=== PATIENT | female | born 1985 ===

== ENCOUNTER 2020-07-12 13:15 | Outpatient (CLI) | payer OTHER, SELFPAY ==
--- NOTE | 2020-07-12 13:59 | PM.OBTRLD ---
Visit Information Visit Information Date of evaluation: 07/12/20 Primary OB Provider: Nery Sanchez On-call OB Provider: Mariel Cardenas Reason for Evaluation: Yes rule out labor Comments/Additional reasons for admission: 34yo at 29w2d here with concerns for contractions. Pt reports having frequent [place] contractions starting around 8am this morning. She has been out running errands with her for most of the day. She came to L&D due to them occurring nearly every 10 minutes, and being concerned about the frequency. No LOF or vaginal bleeding. She is feeling the baby move regularly. FORMERLY [facility] Medical History ADD (attention deficit disorder) Anxiety Breast lump Depression Fracture of middle phalanx of finger of right hand GDM (gestational diabetes mellitus) (~2015) H/O mammogram (~10/17/18) HSV (herpes simplex virus) infection Hypertension affecting IBS (irritable bowel syndrome) Migraine Obesity PCOS (polycystic ovarian syndrome) Pneumonia Sleep apnea (~2019) (spontaneous vaginal delivery) (~09/05/09) (spontaneous vaginal delivery) (~02/29/12) (spontaneous vaginal delivery) (~10/27/15) Threatened miscarriage in early (~2014) Surgical History No history of previous surgery Family History Mother Cancer Myocardial infarction Asthma Father Cardiac disease Diabetes mellitus Myocardial infarction Hyperlipidemia Hypertension Kidney failure Melanoma Grandmother Alzheimer disease Grandfather Myocardial infarction Heavy smoker Heavy alcohol use Grandmother Cancer Lung cancer Grandfather Hepatic sclerosis Heavy alcohol use Heavy smoker Brother Deaf Family/Other Leukemia Family/Other Heavy alcohol use Heavy smoker Brain aneurysm Anorexic Social History marital status: number of children: 3 household members: spouse and children lives independently: Yes pets and animals: Yes (X 3 cats indoor and outdoor : aware; X 2 dogs; X 1 bearded dragon ) 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 Smoking Status: Never smoker second hand exposure: No alcohol intake: former (pre- : rare use) substance use type: does not use Type(s) of exercise: walking Evaluation Evaluation Baseline heart rate: 140 Variability: Moderate (11-25) monitor accelerations: Present monitor decelerations: Absent Category of Tracing: Reactive Diagnosis, Plan/Disposition Final Diagnosis (1) 29 to 30 weeks gestation of : Status: Acute (2) [place]' contraction: Status: Acute Plan/Disposition Plan: 34yo at 29w2d here with concerns for contractions. Only 2 contractions seen on prolonged monitoring, pt denied them being painful. U/A negative. Pt able to tolerate fluids here. Safe for d/c home. OB Disposition: home
[2020-07-12 14:37] LABS: Appearance Urine UA CLEAR; Bilirubin Urine UA NEGATIVE (NEGATIVE); Color Urine UA YELLOW; Glucose Urine UA NEGATIVE (Negative); Ketones Urine UA NEGATIVE (NEGATIVE); Leukocyte Esterase Urine UA NEGATIVE (NEGATIVE); Nitrite Urine UA NEGATIVE (Negative); Occult Blood Urine UA NEGATIVE (Negative); Protein Urine UA NEGATIVE (Negative); Urobilinogen Urine UA 0.2 E.U./dL (0.2)
== END 2020-07-12 15:06 | disposition home or self-care (01) ==
LOC: LABOR 14:21 → OB 07-13 07:56
PROVIDERS: Family Medicine; PCP Family Medicine; Referring Provider Family Medicine; Visit Provider Family Medicine
DX: O47.03 False labor before 37 completed weeks of gestation, third trimester (principal); O26.23 Pregnancy care for patient with recurrent pregnancy loss, third trimester; O46.93 Antepartum hemorrhage, unspecified, third trimester; O10.913 Unspecified pre-existing hypertension complicating pregnancy, third trimester; O99.283 Endocrine, nutritional and metabolic diseases complicating pregnancy, third trimester; E28.2 Polycystic ovarian syndrome; Z3A.29 29 weeks gestation of pregnancy
CPT/HCPCS: 59025; 59050; 81003; G0378; G0379

== ENCOUNTER → 2020-07-13 10:56 | Outpatient (CLI) | payer OTHER, SELFPAY ==
[2020-07-13 11:42] LABS: Add Manual Diff / Slide Review NO; Basophils Absolute Auto 0 /uL (0-100); Basophils Percent Auto 0.2 % (0-2); Eosinophils Absolute Auto 200 /uL (0-450); Eosinophils Percent Auto 1.7 % (2-4); Hematocrit 31.2 % (36-46); Hemoglobin 10.6 g/dL (12.0-16.0); Lymphocytes Absolute Auto 1600 /uL (1100-4500); Lymphocytes Percent Auto 16.8 % (25-40); Mean Corpuscular HGB Conc 34.1 % (30-36); Mean Corpuscular Hemoglobin 30.2 PG (26-34); Mean Corpuscular Volume 88.6 fL (80-100); Monocytes Absolute Auto 700 /uL (0-900); Neutrophils Absolute Auto 7000 /uL (1500-7000); Neutrophils Percent Auto 74.3 % (50-75); Platelet Count 218 X10^3/uL (150-400); Red Blood Cell Count 3.52 X10^6/uL (4.0-5.2); Red Cell Distribution Width 14.9 % (11.6-14.8); White Blood Cell Count 9.5 X10^3/uL (4.5-11.0)
[2020-07-13 12:07] LABS: Alanine Aminotransferase 13 IU/L (<35); Albumin 3.4 g/dL (3.5-5.0); Albumin Globulin Ratio 1.3 (1.0-2.8); Alkaline Phosphatase 78 U/L (38-126); Aspartate Aminotransferase 16 IU/L (14-36); BUN Creatinine Ratio 17.4 (6-22); Bilirubin Total 0.2 mg/dL (0.2-1.3); Blood Urea Nitrogen 8 mg/dL (7-17); Calcium 9.1 mg/dL (8.4-10.2); Carbon Dioxide 21 mmol/L (22-32); Chloride 107 mmol/L (98-107); Estimated Glomerular Filt Rate > 60.0 mL/min (>60); Globulin 2.7 g/dL (1.7-4.1); Glucose 84 mg/dL (70-100); HEMOLYSIS < 15 (0-50); Potassium 4.3 mmol/L (3.4-5.1); Sodium 132 mmol/L (137-145); Total Protein 6.1 g/dL (6.3-8.2)
== END ==
PROVIDERS: PCP Nurse Practitioner Family; Referring Provider Family Medicine; Visit Provider Family Medicine
DX: Z34.90 Encounter for supervision of normal pregnancy, unspecified, unspecified trimester (principal); Z3A.26 26 weeks gestation of pregnancy
CPT/HCPCS: 36415; 80053; 85025

== ENCOUNTER 2020-08-09 16:38 | Outpatient (CLI) | payer OTHER, SELFPAY ==
--- NOTE | 2020-08-09 17:10 | PM.OBTRLD ---
Visit Information Visit Information Date of evaluation: 08/09/20 Primary OB Provider: Nery Sanchez Reason for Evaluation: Yes non-stress test non-stress test reason: decreased movement Comments/Additional reasons for admission: 34yo at 33 weeks and 2 days with concern for decreased movement the last 2 days. She also has extreme anxiety this that something will go wrong. She is in counseling and taking sertraline. Denies contractions, bleeding or leaking of fluid. Vital Signs Vital Signs: Temperature 36.1? Initial blood pressure 141/66 however repeat 124/77 Heart rate 69 PFSH Medical History ADD (attention deficit disorder) Anxiety Breast lump Chronic hypertension Depression Fracture of middle phalanx of finger of right hand GDM (gestational diabetes mellitus) (~2015) H/O mammogram (~10/17/18) HSV (herpes simplex virus) infection Hypertension affecting IBS (irritable bowel syndrome) Migraine Obesity PCOS (polycystic ovarian syndrome) Pneumonia Sleep apnea (~2019) (spontaneous vaginal delivery) (~09/05/09) (spontaneous vaginal delivery) (~02/29/12) (spontaneous vaginal delivery) (~10/27/15) Threatened miscarriage in early (~2014) Surgical History No history of previous surgery Family History Mother Cancer Myocardial infarction Asthma Father Cardiac disease Diabetes mellitus Myocardial infarction Hyperlipidemia Hypertension Kidney failure Melanoma Grandmother Alzheimer disease Grandfather Myocardial infarction Heavy smoker Heavy alcohol use Grandmother Cancer Lung cancer Grandfather Hepatic sclerosis Heavy alcohol use Heavy smoker Brother Deaf Family/Other Leukemia Family/Other Heavy alcohol use Heavy smoker Brain aneurysm Anorexic Social History marital status: number of children: 3 household members: spouse and children lives independently: Yes pets and animals: Yes (X 3 cats indoor and outdoor : aware; X 2 dogs; X 1 bearded dragon ) 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 Smoking Status: Never smoker second hand exposure: No alcohol intake: former (pre- : rare use) substance use type: does not use Type(s) of exercise: walking Evaluation Evaluation Baseline heart rate: 130 monitor accelerations: Present monitor decelerations: Absent Category of Tracing: Reactive Diagnosis, Plan/Disposition Final Diagnosis (1) 33 weeks gestation of : Status: Acute (2) Chronic hypertension: Status: Acute (3) Decreased movement: Status: Acute Plan/Disposition Plan: 34yo 33 weeks and 2 days gestation chronic hypertension and decreased movement the last 2 days. Fetus was very active on the monitor and NST reactive. Initial blood pressure was mildly elevated however repeat improved. Will plan for weekly NSTs for chronic hypertension. OB Disposition: home
== END 2020-08-09 17:15 | disposition home or self-care (01) ==
LOC: OB 08-10 07:36
PROVIDERS: PCP Nurse Practitioner Family; Referring Provider Family Medicine; Visit Provider Family Medicine
DX: O36.8130 Decreased fetal movements, third trimester, not applicable or unspecified (principal); O10.913 Unspecified pre-existing hypertension complicating pregnancy, third trimester; O26.23 Pregnancy care for patient with recurrent pregnancy loss, third trimester; Z3A.33 33 weeks gestation of pregnancy
CPT/HCPCS: 59025; G0378; G0379

== ENCOUNTER 2020-08-19 13:26 | Outpatient (CLI) | payer OTHER, SELFPAY ==
--- NOTE | 2020-08-19 14:17 | PM.OBTRLD ---
Visit Information Visit Information Date of evaluation: 08/19/20 Primary OB Provider: Nery Sanchez Reason for Evaluation: Yes non-stress test non-stress test reason: hypertension/pre-eclampsia Vital Signs Vital Signs: BP 138/67 P 87 PFSH Medical History ADD (attention deficit disorder) Anxiety Breast lump Chronic hypertension Depression Fracture of middle phalanx of finger of right hand GDM (gestational diabetes mellitus) (~2015) H/O mammogram (~10/17/18) HSV (herpes simplex virus) infection Hypertension affecting IBS (irritable bowel syndrome) Migraine Obesity PCOS (polycystic ovarian syndrome) Pneumonia Sleep apnea (~2019) (spontaneous vaginal delivery) (~09/05/09) (spontaneous vaginal delivery) (~02/29/12) (spontaneous vaginal delivery) (~10/27/15) Threatened miscarriage in early (~2014) Surgical History No history of previous surgery Family History Mother Cancer Myocardial infarction Asthma Father Cardiac disease Diabetes mellitus Myocardial infarction Hyperlipidemia Hypertension Kidney failure Melanoma Grandmother Alzheimer disease Grandfather Myocardial infarction Heavy smoker Heavy alcohol use Grandmother Cancer Lung cancer Grandfather Hepatic sclerosis Heavy alcohol use Heavy smoker Brother Deaf Family/Other Leukemia Family/Other Heavy alcohol use Heavy smoker Brain aneurysm Anorexic Social History marital status: number of children: 3 household members: spouse and children lives independently: Yes pets and animals: Yes (X 3 cats indoor and outdoor : aware; X 2 dogs; X 1 bearded dragon ) 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 Smoking Status: Never smoker second hand exposure: No alcohol intake: former (pre- : rare use) substance use type: does not use Type(s) of exercise: walking Evaluation Evaluation Baseline heart rate: 130 Variability: Moderate (11-25) monitor accelerations: Present monitor decelerations: Absent Category of Tracing: Reactive Diagnosis, Plan/Disposition Final Diagnosis (1) 34 weeks gestation of : Status: Acute (2) Chronic hypertension: Status: Acute Plan/Disposition Plan: 34yo 34 weeks and 5 days gestation chronic hypertension. NST reactive. BP acceptable, continue labetalol. Denies symptoms of pre-eclampsia. Continue weekly NST. Follow up in clinic as scheduled. OB Disposition: home
== END 2020-08-19 14:25 | disposition home or self-care (01) ==
LOC: LABOR 14:50 → OB 08-20 09:24
PROVIDERS: PCP Nurse Practitioner Family; Referring Provider Family Medicine; Visit Provider Family Medicine
DX: O10.013 Pre-existing essential hypertension complicating pregnancy, third trimester (principal); Z3A.34 34 weeks gestation of pregnancy
CPT/HCPCS: 59025; G0378; G0379

== ENCOUNTER 2020-08-26 12:26 | Outpatient (CLI) | payer OTHER, SELFPAY ==
--- NOTE | 2020-08-26 13:01 | PM.OBTRLD ---
Visit Information Visit Information Date of evaluation: 08/26/20 Primary OB Provider: Nery Sanchez Reason for Evaluation: Yes non-stress test non-stress test reason: hypertension/pre-eclampsia (Chronic hypertension) Vital Signs Vital Signs: T 35.9 BP 128/77 P 83 PFSH Medical History ADD (attention deficit disorder) Anxiety Breast lump Chronic hypertension Depression Fracture of middle phalanx of finger of right hand GDM (gestational diabetes mellitus) (~2015) H/O mammogram (~10/17/18) HSV (herpes simplex virus) infection Hypertension affecting IBS (irritable bowel syndrome) Migraine Obesity PCOS (polycystic ovarian syndrome) Pneumonia Sleep apnea (~2019) (spontaneous vaginal delivery) (~09/05/09) (spontaneous vaginal delivery) (~02/29/12) (spontaneous vaginal delivery) (~10/27/15) Threatened miscarriage in early (~2014) Surgical History No history of previous surgery Family History Mother Cancer Myocardial infarction Asthma Father Cardiac disease Diabetes mellitus Myocardial infarction Hyperlipidemia Hypertension Kidney failure Melanoma Grandmother Alzheimer disease Grandfather Myocardial infarction Heavy smoker Heavy alcohol use Grandmother Cancer Lung cancer Grandfather Hepatic sclerosis Heavy alcohol use Heavy smoker Brother Deaf Family/Other Leukemia Family/Other Heavy alcohol use Heavy smoker Brain aneurysm Anorexic Social History marital status: number of children: 3 household members: spouse and children lives independently: Yes pets and animals: Yes (X 3 cats indoor and outdoor : aware; X 2 dogs; X 1 bearded dragon ) 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 Smoking Status: Never smoker second hand exposure: No alcohol intake: former (pre- : rare use) substance use type: does not use Type(s) of exercise: walking Evaluation Evaluation Baseline heart rate: 120 Variability: Moderate (11-25) monitor accelerations: Present monitor decelerations: Absent Category of Tracing: Reactive Diagnosis, Plan/Disposition Final Diagnosis (1) Chronic hypertension: Status: Acute (2) 36 weeks gestation of : Status: Acute Plan/Disposition Plan: Reactive NST for chronic HTN. BP normal. Follow up in clinic today. Continue weekly NST. OB Disposition: home
== END 2020-08-26 13:06 | disposition home or self-care (01) ==
LOC: LABOR 12:43 → OB 08-27 06:46
PROVIDERS: PCP Nurse Practitioner Family; Referring Provider Family Medicine; Visit Provider Family Medicine
DX: O10.913 Unspecified pre-existing hypertension complicating pregnancy, third trimester (principal); O09.523 Supervision of elderly multigravida, third trimester; O26.23 Pregnancy care for patient with recurrent pregnancy loss, third trimester; O47.03 False labor before 37 completed weeks of gestation, third trimester; Z3A.35 35 weeks gestation of pregnancy
CPT/HCPCS: 59025; 87653; G0378; G0379

== ENCOUNTER → 2020-08-26 12:52 | Outpatient (CLI) | payer OTHER, SELFPAY ==
[2020-08-27 16:03] LABS: Strep Grp B PCR NEG for Grp B Strep
== END ==
PROVIDERS: PCP Nurse Practitioner Family; Visit Provider Family Medicine
DX: Z34.93 Encounter for supervision of normal pregnancy, unspecified, third trimester (principal); Z3A.36 36 weeks gestation of pregnancy
CPT/HCPCS: 87653

== ENCOUNTER 2020-08-30 13:49 | Outpatient (CLI) | payer OTHER, SELFPAY ==
[2020-08-30 14:44] LABS: Add Manual Diff / Slide Review NO; Basophils Absolute Auto 0 /uL (0-100); Basophils Percent Auto 0.3 % (0-2); Eosinophils Absolute Auto 100 /uL (0-450); Eosinophils Percent Auto 1.3 % (2-4); Hematocrit 32.4 % (36-46); Hemoglobin 10.8 g/dL (12.0-16.0); Lymphocytes Absolute Auto 1700 /uL (1100-4500); Lymphocytes Percent Auto 18.1 % (25-40); Mean Corpuscular HGB Conc 33.5 % (30-36); Mean Corpuscular Hemoglobin 30.1 PG (26-34); Monocytes Absolute Auto 700 /uL (0-900); Monocytes Percent Auto 7.4 % (3-14); Neutrophils Absolute Auto 6800 /uL (1500-7000); Neutrophils Percent Auto 72.9 % (50-75); Platelet Count 175 X10^3/uL (150-400); Red Cell Distribution Width 15.3 % (11.6-14.8); White Blood Cell Count 9.4 X10^3/uL (4.5-11.0)
[2020-08-30 15:14] LABS: Aspartate Aminotransferase 19 IU/L (14-36); BUN Creatinine Ratio 19.6 (6-22); Blood Urea Nitrogen 9 mg/dL (7-17); Estimated Glomerular Filt Rate > 60.0 mL/min (>60); Uric Acid 4.1 mg/dL (2.5-6.2)
--- NOTE | 2020-08-30 15:27 | PM.OBTRLD ---
Visit Information Visit Information Date of evaluation: 08/30/20 Primary OB Provider: Nery Sanchez Reason for Evaluation: Yes non-stress test non-stress test reason: hypertension/pre-eclampsia Comments/Additional reasons for admission: 35 year old at 36 weeks gestation with chronic HTN on labetalol with mild headache, nausea, edema and elevated blood pressures today. Denies vision changes or RUQ pain. Headache is mild and she has not taken anything for it. Feeling very stressed and anxious after elevated BP readings at home. Reports good FM and denies contractions, leaking or bleeding. Vital Signs Vital Signs: BP 130/66 All blood pressures in the center were 130s/60-70s with pulse in the 80s. FOR[facility]LY [facility], [facility] Medical History (Updated 08/30/20 @ 21:01 by Nery Sanchez DO) ADD (attention deficit disorder) Anxiety Breast lump Chronic hypertension Depression Fracture of middle phalanx of finger of right hand GDM (gestational diabetes mellitus) (~2015) H/O mammogram (~10/17/18) HSV (herpes simplex virus) infection Hypertension affecting IBS (irritable bowel syndrome) Migraine Obesity PCOS (polycystic ovarian syndrome) Pneumonia Sleep apnea (~2019) (spontaneous vaginal delivery) (~09/05/09) (spontaneous vaginal delivery) (~02/29/12) (spontaneous vaginal delivery) (~10/27/15) Threatened miscarriage in early (~2014) Surgical History No history of previous surgery Family History Mother Cancer Myocardial infarction Asthma Father Cardiac disease Diabetes mellitus Myocardial infarction Hyperlipidemia Hypertension Kidney failure Melanoma Grandmother Alzheimer disease Grandfather Myocardial infarction Heavy smoker Heavy alcohol use Grandmother Cancer Lung cancer Grandfather Hepatic sclerosis Heavy alcohol use Heavy smoker Brother Deaf Family/Other Leukemia Family/Other Heavy alcohol use Heavy smoker Brain aneurysm Anorexic Social History marital status: number of children: 3 household members: spouse and children lives independently: Yes pets and animals: Yes (X 3 cats indoor and outdoor : aware; X 2 dogs; X 1 bearded dragon ) 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 Smoking Status: Never smoker second hand exposure: No alcohol intake: former (pre- : rare use) substance use type: does not use Type(s) of exercise: walking Objective Labs Result Diagrams: 08/30/20 14:33 08/30/20 14:33 Labs: Laboratory Results - last 24 hr 08/30/20 08/30/20 14:33 14:33 WBC 9.4 RBC 3.60 L Hgb 10.8 L Hct 32.4 L MCV 90.0 MCH 30.1 MCHC 33.5 RDW 15.3 H Plt Count 175 Neut % (Auto) 72.9 Lymph % (Auto) 18.1 L Addison % (Auto) 7.4 Eos % (Auto) 1.3 L Baso % (Auto) 0.3 Neut # (Auto) 6800 Lymph # (Auto) 1700 Addison # (Auto) 700 Eos # (Auto) 100 Baso # (Auto) 0 BUN 9 Creatinine 0.46 L Estimated GFR > 60.0 BUN/Creatinine Ratio 19.6 Uric Acid 4.1 AST 19 Evaluation Evaluation Baseline heart rate: 120 Variability: Moderate (11-25) monitor accelerations: Present monitor decelerations: Absent Category of Tracing: Reactive Laboratory results: Laboratory Tests 08/30/20 08/30/20 14:33 14:33 WBC 9.4 RBC 3.60 L Hgb 10.8 L Hct 32.4 L MCV 90.0 MCH 30.1 MCHC 33.5 RDW 15.3 H Plt Count 175 Neut % (Auto) 72.9 Lymph % (Auto) 18.1 L Addison % (Auto) 7.4 Eos % (Auto) 1.3 L Baso % (Auto) 0.3 Neut # (Auto) 6800 Lymph # (Auto) 1700 Addison # (Auto) 700 Eos # (Auto) 100 Baso # (Auto) 0 BUN 9 Creatinine 0.46 L Estimated GFR > 60.0 BUN/Creatinine Ratio 19.6 Uric Acid 4.1 AST 19 Diagnosis, Plan/Disposition Final Diagnosis (1) Chronic hypertension: Status: Acute (2) 36 weeks gestation of : Status: Acute Plan/Disposition Plan: 35 year old at 36 weeks gestation with chronic HTN with concerns for pre-eclampsia. All blood pressures were normal in the center and pre-eclampsia labs normal as well. Patient was reassured and may take Tylenol for headache. Follow up in clinic as scheduled in three days. Continue home blood pressure monitoring. OB Disposition: home
[2020-08-30 15:58] LABS: Creatinine Urine Random 47.8 mg/dL; Protein (Total) Urine Random 12 mg/dL (0-12); Protein Creatinine Ratio Urine 0.25 GRAM/24H
== END 2020-08-30 15:28 | disposition home or self-care (01) ==
LOC: LABOR 14:33 → OB 08-31 06:48
PROVIDERS: PCP Nurse Practitioner Family; Referring Provider Family Medicine; Visit Provider Family Medicine
DX: O10.913 Unspecified pre-existing hypertension complicating pregnancy, third trimester (principal); O09.523 Supervision of elderly multigravida, third trimester; R51.9 Headache, unspecified; R11.0 Nausea; R60.9 Edema, unspecified; Z3A.36 36 weeks gestation of pregnancy
CPT/HCPCS: 36415; 59025; 82570; 84156; 84450; 84550; 85025; G0378; G0379

== ENCOUNTER 2020-09-02 12:25 | Outpatient (CLI) | payer OTHER, SELFPAY ==
--- NOTE | 2020-09-02 13:22 | PM.OBTRLD ---
Visit Information Visit Information Date of evaluation: 09/02/20 Primary OB Provider: Nery Sanchez On-call OB Provider: Chelsea Hampton Reason for Evaluation: Yes non-stress test non-stress test reason: diabetes and hypertension/pre-eclampsia Vital Signs Vital Signs: 110/64 [facility] Medical History (Updated 08/30/20 @ 21:01 by Nery Sanchez DO) ADD (attention deficit disorder) Anxiety Breast lump Chronic hypertension Depression Fracture of middle phalanx of finger of right hand GDM (gestational diabetes mellitus) (~2015) H/O mammogram (~10/17/18) HSV (herpes simplex virus) infection Hypertension affecting IBS (irritable bowel syndrome) Migraine Obesity PCOS (polycystic ovarian syndrome) Pneumonia Sleep apnea (~2019) (spontaneous vaginal delivery) (~09/05/09) (spontaneous vaginal delivery) (~02/29/12) (spontaneous vaginal delivery) (~10/27/15) Threatened miscarriage in early (~2014) Surgical History No history of previous surgery Family History Mother Cancer Myocardial infarction Asthma Father Cardiac disease Diabetes mellitus Myocardial infarction Hyperlipidemia Hypertension Kidney failure Melanoma Grandmother Alzheimer disease Grandfather Myocardial infarction Heavy smoker Heavy alcohol use Grandmother Cancer Lung cancer Grandfather Hepatic sclerosis Heavy alcohol use Heavy smoker Brother Deaf Family/Other Leukemia Family/Other Heavy alcohol use Heavy smoker Brain aneurysm Anorexic Social History marital status: number of children: 3 household members: spouse and children lives independently: Yes pets and animals: Yes (X 3 cats indoor and outdoor : aware; X 2 dogs; X 1 bearded dragon ) 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 Smoking Status: Never smoker second hand exposure: No alcohol intake: former (pre- : rare use) substance use type: does not use Type(s) of exercise: walking Evaluation Evaluation Baseline heart rate: 125 Variability: Average (6-10) monitor accelerations: Present monitor decelerations: Absent Contraction Frequency (minutes): 0 Category of Tracing: Reactive Status: Category l Diagnosis, Plan/Disposition Final Diagnosis (1) 36 weeks gestation of : Status: Acute (2) Chronic hypertension: Status: Acute Plan/Disposition Plan: Reactive nonstress test. Continue current follow-up with Dr. Sanchez OB Disposition: home
== END 2020-09-02 13:25 | disposition home or self-care (01) ==
LOC: LABOR 13:18 → OB 09-06 09:15
PROVIDERS: PCP Nurse Practitioner Family; Referring Provider Family Medicine; Visit Provider Family Medicine
DX: O24.415 Gestational diabetes mellitus in pregnancy, controlled by oral hypoglycemic drugs (principal); O10.913 Unspecified pre-existing hypertension complicating pregnancy, third trimester; O09.523 Supervision of elderly multigravida, third trimester; O26.23 Pregnancy care for patient with recurrent pregnancy loss, third trimester; Z3A.36 36 weeks gestation of pregnancy
CPT/HCPCS: 59025; G0378; G0379

== ENCOUNTER 2020-09-10 12:09 | Outpatient (CLI) | payer OTHER, SELFPAY ==
--- NOTE | 2020-09-10 13:30 | PM.OBTRLD ---
Visit Information Visit Information Date of evaluation: 09/10/20 Primary OB Provider: Nery Sanchez Reason for Evaluation: Yes non-stress test non-stress test reason: other (chronic hypertension) Vital Signs Vital Signs: T 35.8 BP 133/75 P 78 PFSH Medical History ADD (attention deficit disorder) Anxiety Breast lump Chronic hypertension Depression Fracture of middle phalanx of finger of right hand GDM (gestational diabetes mellitus) (~2015) H/O mammogram (~10/17/18) HSV (herpes simplex virus) infection Hypertension affecting IBS (irritable bowel syndrome) Migraine Obesity PCOS (polycystic ovarian syndrome) Pneumonia Sleep apnea (~2019) (spontaneous vaginal delivery) (~09/05/09) (spontaneous vaginal delivery) (~02/29/12) (spontaneous vaginal delivery) (~10/27/15) Threatened miscarriage in early (~2014) Surgical History No history of previous surgery Family History Mother Cancer Myocardial infarction Asthma Father Cardiac disease Diabetes mellitus Myocardial infarction Hyperlipidemia Hypertension Kidney failure Melanoma Grandmother Alzheimer disease Grandfather Myocardial infarction Heavy smoker Heavy alcohol use Grandmother Cancer Lung cancer Grandfather Hepatic sclerosis Heavy alcohol use Heavy smoker Brother Deaf Family/Other Leukemia Family/Other Heavy alcohol use Heavy smoker Brain aneurysm Anorexic Social History marital status: number of children: 3 household members: spouse and children lives independently: Yes pets and animals: Yes (X 3 cats indoor and outdoor : aware; X 2 dogs; X 1 bearded dragon ) 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 Smoking Status: Never smoker second hand exposure: No alcohol intake: former (pre- : rare use) substance use type: does not use Type(s) of exercise: walking Evaluation Evaluation Baseline heart rate: 120 Variability: Moderate (11-25) monitor accelerations: Present monitor decelerations: Absent Category of Tracing: Reactive Diagnosis, Plan/Disposition Plan/Disposition Plan: 35 year old at 37+6 weeks gestation with chronic HTN on labetalol. Reactive NST. Follow up in clinic today. OB Disposition: home
== END 2020-09-10 13:20 | disposition home or self-care (01) ==
LOC: LABOR 12:11 → OB 09-13 07:32
PROVIDERS: PCP Nurse Practitioner Family; Referring Provider Family Medicine; Visit Provider Family Medicine
DX: O10.913 Unspecified pre-existing hypertension complicating pregnancy, third trimester (principal); O24.419 Gestational diabetes mellitus in pregnancy, unspecified control; Z3A.37 37 weeks gestation of pregnancy
CPT/HCPCS: 59025; G0378; G0379

== ENCOUNTER 2020-09-16 12:15 | Outpatient (CLI) | payer OTHER, SELFPAY ==
--- NOTE | 2020-09-16 12:47 | PM.OBTRLD ---
Visit Information Visit Information Date of evaluation: 09/16/20 Primary OB Provider: Nery Sanchez Reason for Evaluation: Yes non-stress test non-stress test reason: hypertension/pre-eclampsia Vital Signs Vital Signs: Temperature 36.0? blood pressure 132/74 heart rate 89 PFSH Medical History ADD (attention deficit disorder) Anxiety Breast lump Chronic hypertension Depression Fracture of middle phalanx of finger of right hand GDM (gestational diabetes mellitus) (~2015) H/O mammogram (~10/17/18) HSV (herpes simplex virus) infection Hypertension affecting IBS (irritable bowel syndrome) Migraine Obesity PCOS (polycystic ovarian syndrome) Pneumonia Sleep apnea (~2019) (spontaneous vaginal delivery) (~09/05/09) (spontaneous vaginal delivery) (~02/29/12) (spontaneous vaginal delivery) (~10/27/15) Threatened miscarriage in early (~2014) Surgical History No history of previous surgery Family History Mother Cancer Myocardial infarction Asthma Father Cardiac disease Diabetes mellitus Myocardial infarction Hyperlipidemia Hypertension Kidney failure Melanoma Grandmother Alzheimer disease Grandfather Myocardial infarction Heavy smoker Heavy alcohol use Grandmother Cancer Lung cancer Grandfather Hepatic sclerosis Heavy alcohol use Heavy smoker Brother Deaf Family/Other Leukemia Family/Other Heavy alcohol use Heavy smoker Brain aneurysm Anorexic Social History marital status: number of children: 3 household members: spouse and children lives independently: Yes pets and animals: Yes (X 3 cats indoor and outdoor : aware; X 2 dogs; X 1 bearded dragon ) 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 Smoking Status: Never smoker second hand exposure: No alcohol intake: former (pre- : rare use) substance use type: does not use Type(s) of exercise: walking Evaluation Evaluation Baseline heart rate: 120 Variability: Moderate (11-25) monitor accelerations: Present monitor decelerations: Absent Category of Tracing: Reactive Diagnosis, Plan/Disposition Final Diagnosis (1) 38 weeks gestation of : Status: Acute (2) Chronic hypertension: Status: Acute Plan/Disposition Plan: 35 year old at 38+5 weeks gestation with chronic HTN on labetalol. Reactive NST. Follow up in clinic today. OB Disposition: home
== END 2020-09-16 12:51 | disposition home or self-care (01) ==
LOC: LABOR 12:51 → OB 09-20 06:45
PROVIDERS: PCP Nurse Practitioner Family; Referring Provider Family Medicine; Visit Provider Family Medicine
DX: O10.913 Unspecified pre-existing hypertension complicating pregnancy, third trimester (principal); Z3A.38 38 weeks gestation of pregnancy
CPT/HCPCS: 59025; G0378; G0379

== ENCOUNTER 2020-09-19 19:07 | Inpatient (IN) | payer OTHER, SELFPAY ==
[2020-09-19 20:41] LABS: Add Manual Diff / Slide Review NO; Basophils Absolute Auto 0 /uL (0-100); Basophils Percent Auto 0.3 % (0-2); Eosinophils Absolute Auto 100 /uL (0-450); Hematocrit 32.8 % (36-46); Hemoglobin 10.9 g/dL (12.0-16.0); Lymphocytes Absolute Auto 2100 /uL (1100-4500); Lymphocytes Percent Auto 20.2 % (25-40); Mean Corpuscular HGB Conc 33.3 % (30-36); Mean Corpuscular Volume 90.2 fL (80-100); Monocytes Absolute Auto 700 /uL (0-900); Neutrophils Absolute Auto 7300 /uL (1500-7000); Neutrophils Percent Auto 71.5 % (50-75); Platelet Count 180 X10^3/uL (150-400); Red Blood Cell Count 3.64 X10^6/uL (4.0-5.2); Red Cell Distribution Width 14.7 % (11.6-14.8); White Blood Cell Count 10.2 X10^3/uL (4.5-11.0)
[2020-09-19 20:45] VITALS: BP 148/80
[2020-09-19] MEDS: DINOPROSTONE VAG (CERVIDIL) 10 MG VAG (20:54)
[2020-09-19 21:31] LABS: COVID19 - ADMIT (NP swab/PCR) Negative (Negative)
[2020-09-19] MEDS: ZOLPIDEM 5 MG TABLET PO (23:08)
[2020-09-19] MEDS: CALCIUM CARBONATE 500 MG TAB 1000 MG PO (23:08)
--- NOTE | 2020-09-20 07:46 | PM.OBHP.1 ---
OB HPI Date/Time Date of admission: 09/19/20 Date Patient Seen: 09/20/20 Time Patient Seen: 07:35 History of Present Condition Chief complaint: eval of labor : 7 Para: 3 Estimated Date of Delivery: 09/25/20 Estimated Gestational Age (weeks): 39w2d Narrative: Brea Gaitan is a 35 year old at 39+2 weeks. complicated by chronic HTN, PCOS on metformin, anxiety and AMA. Blood pressures well-controlled throughout the with labetalol with normal pre-eclampsia labs at 36 weeks. 1 hr GTT was elevated but 3 hr GTT normal at 20 weeks (done early due to previous GDM). She was unable to repeat a 3 hr GTT at 28 weeks. She monitored blood sugars QID for several weeks and all were normal so no diagnosis of GDM. has also been complicated by severe anxiety which improved with sertraline and regular counseling. H/o genital herpes, last outbreak in 2019. Denies symptoms. Has been taking prophylactic acyclovir. Patient presented last night for cervical ripening. Overnight she slept through contractions. This morning she feels mild contractions which she states are not painful. Indications Indication for induction OB: medical complication (Chronic HTN, AMA) History of Present care: good care, initiated at week # (14), number of visits (14) and pounds weight gain Dating criteria: LMP confirmed by 2nd trimester US Ultrasounds: normal mid trimester US Obstetrical complications: gestational hypertension Medical complications: none Preadmission Labs Blood type: A (+) positive -: Antibody screen: negative, GBS status: negative, HBsAG: negative, HIV: negative and RPR/VDLR: negative -: Chlamydia screen: not detected and Gonorrhea screen: not detected -: Rubella: immune and Varicella: immune HCT: 32.8 HCAB: negative Cell-free DNA: Normal female 1 hr GTT: 165 3 hr GTT: 1 hr (167), 2 hr (167) and 3 hr (118) Fasting blood glucose: 72 Prior (ies) History: 04/22/07 SAB 6-7 wks 09/05/09 Forceps-assisted VD at 39.2 wks, 72 hr labor, epidural, 6 lb 5 oz female, [place], [place], breast fed 18 months 02/29/12 at 39.4 wks, 9 hr labor, epidural, 7 lb 2 oz female, [place], breast fed 12 months 11/18/13 SAB 6-7 wks 10/27/15 at 39.6 wks, 14 hr labor, 8 lb 2 oz male, [place], [place], breast fed 24 months, GDM during 11/30/18 SAB 8+ wks Evaluation Evaluation Baseline heart rate: 130 monitor accelerations: Present monitor decelerations: Absent Contraction Frequency (minutes): 3 Uterine Contraction Intensity: Mild Status: Category l Cervical dilation (cm): 2 Cervical effacement (%): 80 station: -2 Laboratory results: Laboratory Tests 09/19/20 09/19/20 09/19/20 19:50 19:50 19:50 WBC 10.2 RBC 3.64 L Hgb 10.9 L Hct 32.8 L MCV 90.2 MCH 30.0 MCHC 33.3 RDW 14.7 Plt Count 180 Neut % (Auto) 71.5 Lymph % (Auto) 20.2 L [place] % (Auto) 7.0 Eos % (Auto) 1.0 L Baso % (Auto) 0.3 Neut # (Auto) 7300 H Lymph # (Auto) 2100 [place] # (Auto) 700 Eos # (Auto) 100 Baso # (Auto) 0 SARS-CoV-2 (PCR) Negative Blood Type A Positive Antibody Screen Negative [facility] Medical History ADD (attention deficit disorder) Anxiety Breast lump Chronic hypertension Depression Fracture of middle phalanx of finger of right hand GDM (gestational diabetes mellitus) (~2015) H/O mammogram (~10/17/18) HSV (herpes simplex virus) infection Hypertension affecting IBS (irritable bowel syndrome) Migraine Obesity PCOS (polycystic ovarian syndrome) Pneumonia Sleep apnea (~2019) (spontaneous vaginal delivery) (~09/05/09) (spontaneous vaginal delivery) (~02/29/12) (spontaneous vaginal delivery) (~10/27/15) Threatened miscarriage in early (~2014) Surgical History No history of previous surgery Family History Mother Cancer Myocardial infarction Asthma Father Cardiac disease Diabetes mellitus Myocardial infarction Hyperlipidemia Hypertension Kidney failure Melanoma Grandmother Alzheimer disease Grandfather Myocardial infarction Heavy smoker Heavy alcohol use Grandmother Cancer Lung cancer Grandfather Hepatic sclerosis Heavy alcohol use Heavy smoker Brother Deaf Family/Other Leukemia Family/Other Heavy alcohol use Heavy smoker Brain aneurysm Anorexic Social History marital status: number of children: 3 household members: spouse and children lives independently: Yes pets and animals: Yes (X 3 cats indoor and outdoor : aware; X 2 dogs; X 1 bearded dragon ) 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 Smoking Status: Never smoker second hand exposure: No alcohol intake: former (pre- : rare use) substance use type: does not use Type(s) of exercise: walking Meds Home Medications and Allergies Home Medications Medication Instructions Recorded Confirmed Type metformin 500 mg tablet 500 mg PO BID 06/07/20 09/19/20 History prenat.vits,ck,djr-fwfy-ybxxt 1 tab PO DAILY 06/07/20 09/19/20 History acyclovir 400 mg tablet 400 mg PO TID #30 tab 09/16/20 09/19/20 Rx sertraline 100 mg tablet 150 mg PO DAILY #135 tab 09/17/20 09/19/20 Rx labetalol 50 mg PO BID 09/19/20 09/19/20 History Allergies Allergy/AdvReac Type Severity Reaction Status Date / Time HAYFEVER SEASONAL ALLERGIES Allergy Mild Uncoded 09/19/20 20:48 Review of Systems Review of Systems ROS: Yes All systems reviewed with the patient and are negative except as otherwise documented Exam Vital Signs (past 8 hours): T 36.4 BP 148/72 P 94 Const General: healthy appearing and comfortable HENDC Head: normal to inspection Ears: hearing grossly normal bilaterally Nose: external nose normal Face and sinus: normal facial exam Mouth: oral mucosae normal Eyes General: appearance normal, both eyes and all related structures Neck Neck: normal visual inspection Resp Effort & Inspection: normal respiratory effort Auscultation: clear to auscultation bilaterally Cardio Rate: regular rate Rhythm: regular rhythm Heart Sounds: no murmurs GI Other: Gravid External Female Exam: normal external appearance Manual OB Exam: dilated 2, effaced (80) and station -2 Presentation: vertex Estimated Weight (lbs): 8 Back/Spine/Pelvis Back: normal to inspection Skin General: no rashes or lesions noted Extrem General: normal to inspection and no pedal edema Objective Labs Result Diagrams: 09/19/20 19:50 Labs: Laboratory Results - last 24 hr 09/19/20 09/19/20 09/19/20 19:50 19:50 19:50 WBC 10.2 RBC 3.64 L Hgb 10.9 L Hct 32.8 L MCV 90.2 MCH 30.0 MCHC 33.3 RDW 14.7 Plt Count 180 Neut % (Auto) 71.5 Lymph % (Auto) 20.2 L [place] % (Auto) 7.0 Eos % (Auto) 1.0 L Baso % (Auto) 0.3 Neut # (Auto) 7300 H Lymph # (Auto) 2100 [place] # (Auto) 700 Eos # (Auto) 100 Baso # (Auto) 0 SARS-CoV-2 (PCR) Negative Blood Type A Positive Antibody Screen Negative Assessment and Plan Assessment and Plan Assessment and Plan narrative: 35 year old G7P at 39+2 weeks gestation here for induction due to chronic HTN and AMA. She also has a h/o PCOS managed with metformin which she took throughout her . Early 1 hr GTT was elevated however 3 GTT normal at 20 weeks. Patient unable to do repeat 3 hr GTT at 28 weeks so monitored blood sugars at home. All home blood sugars were normal for two months so no diagnosis of GDM made. Lastly she has severe anxiety for which she takes sertraline and participates in counseling. She received Cervidil overnight for cervical ripening. Eaton score of 8 this morning. GBS negative, COVID-19 negative. Blood pressures intermittently mildly elevated overnight. Patient denies ARTIS, vision changes, RUQ pain or edema. Plan Due to elevated blood pressures, will check pre-eclampsia labs. She will also take her usual labetalol this morning. Patient may shower and have a small breakfast prior to starting pitocin Desires natural childbirth Anticipate vaginal delivery
[2020-09-20] MEDS: LACTATED RINGERS 1,000 ML 100 ML IV ×2 (08:46→11:38)
[2020-09-20 09:04] VITALS: BP 149/72; PULSE 90
[2020-09-20] MEDS: METFORMIN HCL 500 MG TABLET PO ×2 (09:04→21:05)
[2020-09-20] MEDS: LABETALOL 100 MG TABLET 50 MG PO ×2 (09:04→21:54)
[2020-09-20] MEDS: ACYCLOVIR 400 MG TABLET PO ×2 (09:04→15:54)
[2020-09-20] MEDS: OXYTOCIN PREMIX 30 UNIT/500 ML PLAST..BAG IV (09:21)
[2020-09-20 09:38] LABS: Alanine Aminotransferase 15 IU/L (<35); Albumin 3.8 g/dL (3.5-5.0); Albumin Globulin Ratio 1.3 (1.0-2.8); Alkaline Phosphatase 126 U/L (38-126); Aspartate Aminotransferase 20 IU/L (14-36); BUN Creatinine Ratio 20.8 (6-22); Bilirubin Total 0.3 mg/dL (0.2-1.3); Blood Urea Nitrogen 11 mg/dL (7-17); Calcium 9.5 mg/dL (8.4-10.2); Carbon Dioxide 20 mmol/L (22-32); Chloride 105 mmol/L (98-107); Estimated Glomerular Filt Rate > 60.0 mL/min (>60); Globulin 2.9 g/dL (1.7-4.1); Glucose 96 mg/dL (70-100); HEMOLYSIS < 15 (0-50); Sodium 134 mmol/L (137-145); Total Protein 6.7 g/dL (6.3-8.2)
[2020-09-20 10:00] LABS: Creatinine Urine Random 185.5 mg/dL
[2020-09-20 10:06] LABS: Microalbumi Creatinin Ratio Ur 10.2 ug/mg CR (<30); Microalbumin Urine Random 1.9 mg/dL (0-1.6)
[2020-09-20] MEDS: FENT 2MCG/ML BUPIV 0.125% EPI 200 MCG/100 ML PLAST..BAG 10 MCG EPIDURAL ×2 (10:40→16:44)
--- NOTE | 2020-09-20 11:13 | PM.OBPNLAB ---
Date/Time Date Patient Seen: 09/20/20 Time Patient Seen: 11:05 Pain Control Pain control: tolerating well and epidural Comments: Patient became very painful shortly after starting pitocin and requested epidural. Comfortable with epidural now and cannot feel contractions. Pelvic Exam Dilation (cm): 3 Effacement (%): 90 station: -2 Amniotic membrane status: Intact Contractions Contraction frequency (min): 3 Contraction intensity: Strong/Firm Status status: Category l Heart Rate Baseline: 130 Monitor Accelerations: Present Monitor Decelerations: Absent Monitor Variability: Moderate Assessment and Plan Assessment: induction ongoing Plan: continuous present management Comments: Pitocin turned off prior to epidural due to difficult monitoring. Patient now comfortable. Will restart pitocin and AROM when able.
--- NOTE | 2020-09-20 15:09 | PM.OBPNLAB ---
Date/Time Date Patient Seen: 09/20/20 Time Patient Seen: 15:00 Pain Control Pain control: epidural Pelvic Exam Dilation (cm): 4 Effacement (%): 90 station: -2 Amniotic membrane status: Ruptured (moderate amount of clear fluid) Contractions Pitocin rate (mU/min): 5 Contraction frequency (min): 3 Contraction intensity: Strong/Firm Status status: Category l Heart Rate Baseline: 120 Monitor Accelerations: Present Monitor Decelerations: Absent Monitor Variability: Moderate Assessment and Plan Assessment: induction ongoing Plan: continuous present management Comments: AROM for clear fluid. Continue pitocin.
--- NOTE | 2020-09-20 16:57 | PM.OBPNLAB ---
Date/Time Date Patient Seen: 09/20/20 Time Patient Seen: 16:57 Pain Control Pain control: tolerating well Comments: Does not feel that epidural is working on her left side. Declines having anesthesia come. Pelvic Exam Dilation (cm): 9 Effacement (%): 100 station: -2 Amniotic membrane status: Ruptured (moderate amount of clear fluid) Contractions Monitor mode: External Pitocin rate (mU/min): 7 Contraction frequency (min): 3 Contraction pattern: Regular Contraction intensity: Strong/Firm Status status: Category ll Heart Rate Baseline: 130 Monitor Accelerations: Present Monitor Decelerations: Variable Monitor Variability: Moderate Assessment and Plan Assessment: induction ongoing Plan: continuous present management
--- NOTE | 2020-09-20 18:00 | PM.OBPRVD ---
Labor & Delivery Delivery date: 09/20/20 Cervical ripening method: per Cervidil protocol Induction method: per pitocin protocol Delivery augmentation: rupture of membranes Delivery monitor: external FHT Route of delivery: L&D Laceration Description: Labial (First-degree right labial) Estimated blood loss (mL): 200 Anesthesia Type: Epidural Narrative: Patient is a 35-year-old at 39 weeks and 2 days gestation who gave on 09/20/20 at 17:42. MARLEN: 09/25/20 Hospital problems: 39 weeks of Epidural analgesia STAGE I: Labor Patient came in the night of 09/19/20 for cervical ripening. She was then started on Pitocin per protocol the morning of 09/20/20. She received an epidural with adequate pain control. Artificial rupture membranes occurred at 3:00 p.m. with clear fluid. She was complete 17:20. heart tones were category 1 throughout stage I. Stage I duration 7 hours and 59 minutes. STAGE II: Delivery Patient was complete and pushed for 22 minutes. heart tones were category 2 due to large variable decelerations to the 70s with pushing but with good recovery between contractions. Patient brought baby down to +2 station and heart tones remained in the 70s. She then pushed without a contraction and went on to deliver at 17:42. Infant was vertex and JOSH. There was a cord over the right shoulder and body. was immediately placed on mother's abdomen. Infant had a weak cry and poor respiratory effort so was taken to the warmer after 2 minutes of life. 1 minute was 7 and 5 minutes was 8. required support with CPAP about 30 seconds of PPV but by 12 minutes of life was transferred back to mother. STAGE III: Placenta/Cord Placenta delivered at 5:46 p.m. after active management and appeared intact with a three-vessel cord. Pitocin bolus given after delivery of placenta. There was a superficial right labial laceration which was not repaired. Fundus was firm 1 cm below umbilicus after delivery. Hemostasis assured. EBL: 200 mL. Needle and sponge counts were correct. The vagina was inspected and no items were left in situ. Patient was doing well with [place], her and at bedside. Baby 1: Infant gender: Female Presentation: vertex Placenta delivery description: Spontaneous Cord Vessel Description: 3 Vessels and Around Body x1 score (1 min): 7 score (5 min): 8
[2020-09-20 21:54] VITALS: BP 122/70; PULSE 97
[2020-09-20] MEDS: SERTRALINE 50 MG TABLET 150 MG PO (21:59)
[2020-09-21] MEDS: LANOLIN OINT 7 GM 1 APPLIC TOP (02:43)
[2020-09-21 02:44] VITALS: TEMP 37.6
[2020-09-21] MEDS: ACETAMINOPHEN 325 MG TABLET 650 MG PO (02:44)
[2020-09-21] MEDS: IBUPROFEN 600 MG TABLET PO ×3 (02:45→15:36)
[2020-09-21 09:05] VITALS: TEMP 36.7
[2020-09-21] MEDS: DOCUSATE 100 MG CAPSULE PO (09:06)
[2020-09-21] MEDS: PRENATAL VIT,CALC/IRON/FOLIC 1 TABLET 1 TAB PO (09:06)
[2020-09-21] MEDS: METFORMIN HCL 500 MG TABLET PO (09:07)
[2020-09-21 09:08] VITALS: BP 134/71; PULSE 76
[2020-09-21] MEDS: LABETALOL 100 MG TABLET 50 MG PO (09:08)
--- NOTE | 2020-09-21 10:22 | PM.OBDS.1 ---
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 She was induced for chronic hypertension. was also complicated by severe anxiety and PCOS on metformin but not gestational diabetes. On admission blood pressures were quite elevated so preeclampsia labs done and normal. Blood pressures improved though were still intermittently mildly elevated throughout her hospitalization. She was continued on her usual labetalol. Denied symptoms of preeclampsia. She received Cervidil for cervical ripening followed by Pitocin and went on to deliver a healthy female . Infant required a brief period of resuscitation at the warmer after delivery but quickly transferred back to mother at approximately 12 minutes of life. course was uncomplicated. Patient was ambulating, voiding and passing flatus. Vaginal bleeding moderate to light. Pain controlled with ibuprofen only. Breast-feeding going well. Advised patient to call for fevers, severe pain or bleeding through more than a pad an hour. Peripartum Data Delivery Method: Natural Vaginal Laceration Description: Labial complications: none 1: Gender: Female Disposition of : home Discharge Diagnosis (1) Spontaneous vaginal delivery: Status: Acute (2) Chronic hypertension: Status: Acute (3) Anxiety: Status: Acute (4) PCOS (polycystic ovarian syndrome): Status: Acute Problem Details: As a sophomore in Status at Discharge Cognitive/behavioral status at discharge: at baseline, oriented Functional status at discharge: independent ambulation Overall status at discharge: patient is progressing back to baseline Time Spent with Patient Time attestation: Total time spent providing and/or coordinating discharge services: Time spent: Less than 30 minutes Objective Labs Result Diagrams: 09/19/20 19:50 09/20/20 09:21 Exam Vital Signs (past 8 hours): - 09/21/20 02:44 09/21/20 09:05 09/21/20 09:08 Temperature 99.6 F 98.1 F Pulse Rate 76 Blood Pressure 134/71 Narrative Exam Narrative: General: Awake and alert, no acute distress. HEENT: NCAT, EOMI, moist oral mucosa CV: Regular rate and rhythm, no murmurs, rubs or gallops Lungs: CTAB, no wheezes, rales, or rhonchi Abdomen: Soft, nontender; bowel tones active; uterus firm 1 cm below umbilicus Extremities: Warm, no edema, 2+ pedal pulses bilaterally Discharge Plan Discharge Plan Patient Disposition: Home Discharge orders & Medications Prescriptions: New docusate sodium [DOK] 100 mg Capsule 100 mg PO DAILY Qty: 30 RF: 0 ibuprofen 600 mg Tablet 600 mg PO Q6HR PRN (Reason: Pain, Mild (1-3)) Qty: 30 RF: 0 labetalol 100 mg Tablet 50 mg PO BID Qty: 30 RF: 0 Continued prenat.vits,ck,vnu-kfii-gamih Tablet 1 tab PO DAILY RF: 0 sertraline 100 mg tablet 150 mg PO DAILY Qty: 135 RF: 3 metformin 500 mg tablet 500 mg PO BID RF: 0 Discontinued acyclovir 400 mg tablet 400 mg PO TID Qty: 30 RF: 0 labetalol 100 mg tablet 50 mg PO BID RF: 0 Follow up/Referrals: Dianne Quinn ARNP [Primary Care Provider] - Nery Sanchez DO [Physician] - 11/04/20 2:30 pm (Please follow up with Dr. Sanchez on November 04 at 2:30pm with a 2:15pm check in time. If you have any questions/concerns or need to reschedule please call .) Visit Report/Discharge Packet Instructions: DI for Labor and Delivery, Vaginal Stand Alone Forms: Discharge: Care Visit Report Forms: Patient Portal/API, Stroke Signs & Symptoms Discharge Data Primary Care Provider: Dianne Quinn
[2020-09-21 15:36] VITALS: TEMP 36.9
[2020-09-21 16:07] VITALS: BP 134/71; PULSE 76; RESP 20; TEMP 36.9
== END 2020-09-21 18:00 | disposition home or self-care (01) | DRG 806 ==
PROVIDERS: Admitting Provider Family Medicine; PCP Nurse Practitioner Family; Referring Provider Family Medicine; Visit Provider Family Medicine
DX: O10.92 Unspecified pre-existing hypertension complicating childbirth (principal); O98.32 Other infections with a predominantly sexual mode of transmission complicating childbirth; Z37.0 Single live birth; B00.9 Herpesviral infection, unspecified; Z3A.39 39 weeks gestation of pregnancy; O99.284 Endocrine, nutritional and metabolic diseases complicating childbirth; E28.2 Polycystic ovarian syndrome; O99.344 Other mental disorders complicating childbirth; F41.9 Anxiety disorder, unspecified; O76 Abnormality in fetal heart rate and rhythm complicating labor and delivery; Z20.822 Contact with and (suspected) exposure to COVID-19
CPT/HCPCS: 01967; 36415; 59050; 59200; 59410; 80053; 82043; 82570; 85025; 86850; 86900; 86901; 87635; G0379; J2590

== ENCOUNTER → 2021-08-17 10:03 | Outpatient (CLI) | payer OTHER, SELFPAY ==
[2021-08-17 14:43] LABS: COVID19 -Nasal RAPID Negative (Negative)
== END ==
PROVIDERS: PCP Nurse Practitioner Family; Visit Provider Family Medicine Sleep Medicine
DX: Z20.822 Contact with and (suspected) exposure to COVID-19 (principal)
CPT/HCPCS: 87635; C9803

== ENCOUNTER 2021-08-18 11:29 | Day surgery (SDC) | payer OTHER, SELFPAY ==
[2021-08-17 09:14] VITALS: BMI 34.2
[2021-08-18] VITALS (8 sets, daily range): BP systolic 117–156; BP diastolic 74–89; PULSE 68–111; RESP 12–16; TEMP 36.4–36.7; O2SAT 94–98; BMI 34.2
[2021-08-18] MEDS: LACTATED RINGERS 1,000 ML 84 ML IV ×2 (12:06→14:18)
[2021-08-18] MEDS: OXYMETAZOLINE NASAL SPRAY 15 ML 2 SPRAYS NASAL ×2 (12:24→13:48)
--- NOTE | 2021-08-18 13:02 | PM.PREOP ---
Pre-operative Note Interval Note History & Physical reviewed/Exam performed by Physician: Yes Changes to H&P: No
--- NOTE | 2021-08-18 13:02 | PM.HP.1 ---
History of Present Illness History of Present Illness Date Patient Seen: 08/18/21 Time Patient Seen: 13:02 Chief complaint: Nasal obstruction, septal deviation Narrative: 35-year-old female with chronic nasal obstruction and known septal deviation presents for surgical intervention. She was last seen in clinic 04/20/2021, admittedly not using her full face CPAP for what she describes as mild RUSLAN, as she sleeps with her infant. No interval cough, cold, or fever. Patient History Medical History ADD (attention deficit disorder) Allergic rhinitis Anxiety Breast lump Chronic hypertension Depression Deviated septum Diabetes mellitus Enlarged tonsils Fracture of middle phalanx of finger of right hand GDM (gestational diabetes mellitus) (~2015) H/O mammogram (~10/17/18) Hearing loss HSV (herpes simplex virus) infection Hypertension Hypertension affecting IBS (irritable bowel syndrome) Maxillary sinusitis, chronic Migraine Nasal congestion Nasal obstruction Nasal turbinate hypertrophy Obesity RUSLAN (obstructive sleep apnea) PCOS (polycystic ovarian syndrome) Pneumonia Sleep apnea (~2019) (spontaneous vaginal delivery) (~09/05/09) (spontaneous vaginal delivery) (~02/29/12) (spontaneous vaginal delivery) (~10/27/15) Threatened miscarriage in early (~2014) Surgical History No history of previous surgery Family & Social History Family History Mother Cancer Myocardial infarction Asthma Father Cardiac disease Diabetes mellitus Myocardial infarction Hyperlipidemia Hypertension Kidney failure Melanoma Grandmother Alzheimer disease Grandfather Myocardial infarction Heavy smoker Heavy alcohol use Grandmother Cancer Lung cancer Grandfather Hepatic sclerosis Heavy alcohol use Heavy smoker Brother Deaf Family/Other Leukemia Family/Other Heavy alcohol use Heavy smoker Brain aneurysm Anorexic Social History: household members spouse,children lives independently Yes other NOTE : be aware that if it comes to chosing life of mom or baby chose baby! Tobacco & Substance use: Smoking Status Never smoker alcohol intake current alcohol intake frequency holiday/special occasion Substance Use Type does not use Meds Home Medications and Allergies Home Medications Medication Instructions Recorded Confirmed Type metformin 500 mg tablet 500 mg PO BID 06/07/20 08/18/21 History prenat.vits,ck,nyp-wpri-yamsa 1 tab PO DAILY 06/07/20 08/18/21 History sertraline 100 mg tablet 150 mg PO DAILY #135 tab 09/17/20 08/18/21 Rx docusate sodium 100 mg capsule 100 mg PO DAILY #30 cap 09/21/20 08/18/21 Rx (DOK) ibuprofen 600 mg tablet 600 mg PO Q6HR PRN #30 tab 09/21/20 08/18/21 Rx clobetasol 0.05 % scalp solution TOPICAL 08/17/21 History hydrochlorothiazide 12.5 mg tablet 12.5 mg PO DAILY 08/17/21 08/18/21 History ketoconazole 2 % shampoo TOPICAL 08/17/21 History lisinopril 20 mg tablet 20 mg DAILY 08/17/21 08/18/21 History methylphenidate HCl 36 mg 36 mg PO DAILY 08/17/21 08/18/21 History tablet,extended release 24 hr Allergies Allergy/AdvReac Type Severity Reaction Status Date / Time HAYFEVER SEASONAL ALLERGIES Allergy Mild Uncoded 08/18/21 11:36 Review of Systems Review of Systems Narrative: Negative except as noted in the HPI Exam Vital Signs (past 8 hours): - 08/18/21 11:47 Temperature 98.1 F Pulse Rate 68 Respiratory Rate 16 Blood Pressure 117/74 Pulse Oximetry 98 Oxygen Delivery Method Room Air Narrative Exam Narrative: Well-developed overweight female in no acute distress, 3 to 4+ left septal deviation, right inferior turbinate hypertrophy, heart regular rate and rhythm without murmur, lungs clear to auscultation bilaterally Assessment & Plan Assessment & Plan narrative: Assessment: Nasal airway obstruction, septal deviation, inferior turbinate hypertrophy, RUSLAN Plan: Following discussion of the material risks benefits complications and alternatives, she elected to proceed with septoplasty and inferior turbinate reduction. Time Spent With Patient Critical Care time: I spent a total of [] minutes of critical care time on this patient's care today; this time is exclusive of procedural time.
--- NOTE | 2021-08-18 13:05 | PM.OP.1 ---
Operative Date/Time/Diagnoses Date of procedure: 08/18/21 Time of procedure: 14:23 Pre-op diagnosis: Nasal airway obstruction, septal deviation, inferior turbinate hypertrophy, RUSLAN Post-op diagnosis: same Procedure & Clinicians Procedure: 1. Septoplasty 2. Inferior turbinate reduction via intramural cautery Same procedure as scheduled: Yes Indications: 35-year-old female with the above diagnoses incompletely managed with medical therapy presents for the above procedures. Following discussion of the material risks benefits complications and alternatives, she elected to proceed. Surgeon: Brendan Montes De Oca Click Yes if Unassisted: Yes Anesthesia Type: General and Local Operative Notes Findings: 3 to 4+ left septal deviation, right greater than left inferior turbinate hypertrophy Closure Type: primary Estimated Blood Loss (mL): 20 Procedure in detail: Following identification and confirmation of consent as well as preoperative Afrin nasal spray, the patient was brought to the operating room suite and placed in the supine position. General endotracheal anesthesia was administered. I infiltrated the septum widely bilaterally with 1% lidocaine 1 100,000 epinephrine followed by temporary packing with cotton with Afrin and 4% lidocaine. Following sterile prep and drape, the packing was removed and I performed a right yolette-transfixion incision, elevated the right mucoperichondrial and mucoperiosteal flap. I disarticulated near the bony/cartilaginous junction and elevated the left mucoperiosteal flap. Deviated portions of the perpendicular plate of the ethmoid and vomer were resected. The residual quadrilateral cartilage was further straightened by trimming it inferiorly as well as reducing the maxillary crest. A 2 mm strip of cartilage paralleling the residual 1 cm dorsal and caudal strut was resected to further straighten the quadrilateral cartilage. The hemitransfixion incision was closed with interrupted 5 0 chromic followed by a running 4 0 plain gut mattress suture to reapproximate the septal flaps. At case completion, 20/1000th of an inch silastic splints were placed bilaterally, sutured anteriorly with a single 4 0 nylon. The head of each inferior turbinate had been previously infiltrated with additional local anesthetic and a 25 gauge spinal needle was used to impale the length of the turbinate, with cautery on a setting of 15 activated on slow withdrawal over 2 passes. The turbinates were then outfractured. The procedure completed, sponge and needle counts were correct and the patient was extubated in the operating room and taken to recovery room in stable condition without known complication. Postoperative care: Nasal saline every hour while awake, Vaseline or Polysporin to the nostrils at all times, begin irrigations t.i.d. beginning pod 1. Humidifier at the bedside blowing on the face. Tylenol alternating with Advil for pain control, oxycodone if necessary for breakthrough pain. Complications: none Post-operative Condition: stable Disposition: same day surgery Plan for aftercare: Nasal saline every hour while awake, begin irrigations t.i.d. tomorrow if desired. Polysporin to the nostrils at all times, Tylenol alternating with Advil for pain control, oxycodone for breakthrough pain. Elevate head of bed, no nose blowing, no straining for 2 weeks. Follow-up in 1 week for nasal splint removal. Use CPAP if at all possible, at least elevate HOB.
--- NOTE | 2021-08-18 13:42 | SUR.OPER ---
Supine on padded OR bed, head gel doughnut, arms padded and tucked at sides, legs uncrossed, safety belt at thigh, tape over blanket over lower legs .
[2021-08-18] MEDS: BACITRACIN OINT 0.9 GM PCKT 1 APPLIC TOP (13:50)
[2021-08-18] MEDS: LIDOCAINE 2% W/EPI INJ 20 ML INJ (13:50)
[2021-08-18] MEDS: OXYCODONE/ACETAMINOPHEN 5/325 TABLET 1 TAB PO ×2 (14:35→15:05)
--- NOTE | 2021-08-18 15:11 | SUR.PHASEII ---
patient refused to stay any longer. need to citrus pick[employer] children with her ride. doing well. awake. conversing appopriately with staff. pain tolerable. minimal drainage from bilateral nares. VSS
== END 2021-08-18 15:12 | disposition home or self-care (01) ==
PROVIDERS: PCP Nurse Practitioner Family; Referring Provider Otolaryngology; Visit Provider Otolaryngology
PROC: (CPT 30520; principal; 2021-08-18 12:45)
DX: J34.2 Deviated nasal septum (principal); J34.3 Hypertrophy of nasal turbinates; J32.0 Chronic maxillary sinusitis; G47.33 Obstructive sleep apnea (adult) (pediatric); E11.9 Type 2 diabetes mellitus without complications; Z79.84 Long term (current) use of oral hypoglycemic drugs; I10 Essential (primary) hypertension
CPT/HCPCS: 30520; 30802; J1100; J2250; J2405; J2704; J3010